=== PATIENT | male | born 1980 | race American Indian/Alaskan Native ===

== ENCOUNTER 2018-04-29 12:11 | Emergency (ER) | payer MEDICAID, MEDICARE ==
--- NOTE | 2018-04-29 12:20 | EDM.PDOC ---
ED HPI GENERAL MEDICAL PROBLEM - General Chief Complaint: Upper Extremity Injury/Pain Stated Complaint: [id number] SLIPPED AT WORK 2 DAYS AGO Time Seen by Provider: 04/29/18 12:20 Source of Information: Reports: Patient, RN, RN Notes Reviewed History Limitations: Reports: No Limitations - History of Present Illness INITIAL COMMENTS - FREE TEXT/NARRATIVE: C/O pain to left wrist. Two days ago pt states he struck his left wrist on a nail remover (claw bar) that was embedded in a wall as he was carrying a skill saw. He sustained a puncture wound, which now he believes is becoming infected. He denies fever, chills, or purulent drainage. Onset: Sudden Onset Date: 04/27/18 Duration: Constant, Getting Worse Location: Reports: Upper Extremity, Left Quality: Reports: Ache Severity: Severe Improves with: Reports: Immobilization, Rest Worsens with: Reports: Movement Associated Symptoms: Reports: No Other Symptoms Left Wrist Pain Score (Numeric/FACES): 8 - Related Data Allergies Allergy/AdvReac Type Severity Reaction Status Date / Time No Known Allergies Allergy Verified 04/29/18 12:22 Home Meds: Home Meds . [No Known Home Meds] 04/07/14 [History] Past Medical History - Past Health History Medical/Surgical History: Denies Medical/Surgical History Neurological History: Reports: None Psychiatric History: Reports: None Endocrine/Metabolic History: Reports: None Hematologic History: Reports: None Immunologic History: Reports: None Oncologic (Cancer) History: Reports: None Dermatologic History: Reports: None - Past Surgical History GI Surgical History: Reports: Cholecystectomy Endocrine Surgical History: Reports: None Neurological Surgical History: Reports: None Oncologic Surgical History: Reports: None Dermatological Surgical History: Reports: None Social & Family History - Family History Family Medical History: Noncontributory - Living Situation & Occupation Living situation: Reports: with Family Occupation: Employed Review of Systems - Review of Systems Review Of Systems: ROS reveals no pertinent complaints other than HPI. ED EXAM, GENERAL - Physical Exam Exam: See Below Exam Limited By: No Limitations General Appearance: Alert, WD/WN, No Apparent Distress Respiratory/Chest: No Respiratory Distress Cardiovascular: Normal Peripheral Pulses Extremities: Normal Capillary Refill, Arm Pain (left ulnar wrist with subacute puncture wound with 2-3cm of peripheral erythema, mild increased warmth, very slight soft tissue swelling, no drainage) Neurological: Alert, Oriented, No Motor/Sensory Deficits Psychiatric: Normal Mood ED TRAUMA EXTREMITY PROCEDURES - Splinting Left Upper Extremity Splint Site: left wrist Pre-Procedure NV Status: Normal Post-Procedure NV Status: Normal Splint Material: Metal Splint Design: Volar Applied & Form Fitted By: Nurse Provider Post-Splint Application NV Check: NV Status Normal, Good Position Complications: No Course - Vital Signs Last Recorded V/S: Last Vital Signs Temp 36.6 C 04/29/18 12:13 Pulse 94 04/29/18 12:13 Resp 18 04/29/18 12:13 BP 126/76 04/29/18 12:13 Pulse Ox 99 04/29/18 12:13 - Orders/Labs/Meds Orders: Active Orders 24 hr Category Date Time Status Splinting [RC] ASDIRECTED Care 04/29/18 12:26 Active Vaccines to be Administered [RC] PER UNIT ROUTINE Care 04/29/18 12:23 Active Meds: Medications Discontinued Medications Generic Name Dose Route Start Last Admin Trade Name Yoel PRN Reason Stop Dose Admin Bacitracin 1 dose 04/29/18 12:24 04/29/18 12:38 Bacitracin Oint 1 Gm TOP 04/29/18 12:25 1 dose ONETIME ONE Administration Diphtheria/Tetanus/Acell Pertussis 0.5 ml 04/29/18 12:23 04/29/18 12:37 Adacel IM 04/29/18 12:24 0.5 ml .ONCE ONE Administration Doxycycline Hyclate 100 mg 04/29/18 12:23 04/29/18 12:35 Vibramycin PO 04/29/18 12:24 100 mg ONETIME ONE Administration Ibuprofen 800 mg 04/29/18 12:24 04/29/18 12:36 Motrin PO 04/29/18 12:25 800 mg ONETIME ONE Administration - Radiology Interpretation Free Text/Narrative:: XR left wrist: no fractures, no FB, see Rad. report. Departure - Departure Time of Disposition: 12:53 Disposition: Home, Self-Care 01 Condition: Fair Clinical Impression: Infected puncture wound of hand Qualifiers: Encounter type: initial encounter Laterality: left Qualified Code(s): S61.432A - Puncture wound without foreign body of left hand, initial encounter - Discharge Information Instructions: Puncture Wound, Cellulitis, Adult, [id number] Forms: ED Department Discharge Additional Instructions: Rx: Doxycycline 100mg Rx: Bactroban Ointment 5% Rx: Naprosyn 500mg Wear left wrist splint as needed for comfort. Follow up in clinic in 4 to 5 days for recheck. - My Orders Last 24 Hours: My Active Orders 04/29/18 12:23 Vaccines to be Administered [RC] PER UNIT ROUTINE 04/29/18 12:26 Splinting [RC] ASDIRECTED - Assessment/Plan Last 24 Hours: My Active Orders 04/29/18 12:23 Vaccines to be Administered [RC] PER UNIT ROUTINE 04/29/18 12:26 Splinting [RC] ASDIRECTED
[2018-04-29] MEDS ORDERED: Diphtheria,Pertussis(Acell),Tetanus Vaccine 0.5 ML SDV IM ONE (12:23)
[2018-04-29] MEDS ORDERED: Doxycycline 100 MG Cap PO ONE (12:23)
[2018-04-29] MEDS ORDERED: Bacitracin Oint 1 GM U/D Packet TOP ONE (12:24)
[2018-04-29] MEDS ORDERED: Ibuprofen 800 MG Tab PO ONE (12:24)
[2018-04-29 12:30] VITALS: BP 126/76
--- NOTE | 2018-04-29 12:52 | CR ---
Clinical history: 37-year-old male puncture wound after fall on outstretched wrist. Interpretation: Soft tissue swelling volar/ulnar aspect of the wrist. No foreign bodies or inflammato ry periostitis. No left wrist fracture or dislocation. Distal left radius/ulna and the metacarpals left hand unremark able.
== END 2018-04-29 13:09 | disposition home or self-care (01) ==
LOC: DL.ED 12:11
DX: S61.432A Puncture wound without foreign body of left hand, initial encounter (principal); L08.9 Local infection of the skin and subcutaneous tissue, unspecified; W26.8XXA Contact with other sharp object(s), not elsewhere classified, initial encounter; Z23 Encounter for immunization
CPT/HCPCS: 73110; 90471; 90715; 99283; A9270

== ENCOUNTER 2019-06-27 17:23 | Emergency (ER) | payer MEDICARE ==
[2019-06-27] MEDS ORDERED: Lactated Ringers 1,000 ML IV ONE (17:34)
[2019-06-27] MEDS ORDERED: Lidocaine 1% 30 ML SDV INJECT ONE (17:38)
[2019-06-27] MEDS ORDERED: diphenhydrAMINE 50 MG/ML SDV IVPUSH ONE (17:39)
--- NOTE | 2019-06-27 18:04 | CT ---
EXAMINATION: Cervical Spine wo Cont SEX: Male AGE: 38 years CLINICAL HISTORY: 38-year-old male injured in a backward fall in which he sustained head/neck injury. No LOC. Scan technique: Volume acquisition of data emergency unenhanced CT scan of the cervical spine obtained with patient lying supine on the Siemens multi slice scanner [place], [place]. All data archived in the PACS system for storage, reformatting axial/sagittal/coronal planes and study. INTERPRETATION: 1. Straightening of usual cervical lordosis but normal bone density, height and alignment of the 7 cervical and first 2 thoracic vertebra. No sign of prevertebral soft tissue swelling, cervical fracture, spondylolisthesis or jumped locked facets. 2. Hypertrophic marginal spondylosis present at several levels. Mild reactive atlantoaxial sclerosis. 3. No cervical rib anomalies. Lung apices clear. 4. No basal skull fracture. Symmetric clear pneumatization of the mastoid sinuses. 5. No foreign bodies. CONCLUSION: No cervical fracture or dislocation.
[2019-06-27 18:05] LABS: ANION GAP 14.8; CHLORIDE,CL 101 mmol/L (101-111); SODIUM,NA 136 mmol/L (135-145)
--- NOTE | 2019-06-27 18:09 | CT ---
EXAMINATION: Head wo Cont SEX: Male AGE: 38 years CLINICAL HISTORY: 38-year-old male injured in a fall, head/neck injury. "Negative" CT scan cervical spine. Scan technique: Volume acquisition of data emergency unenhanced CT scan of the head and brain obtained with patient lying supine on the Siemens multi slice scanner [place], [place]. All data archived in the PACS system for storage, reformatting axial/sagittal/coronal planes and study (bone/brain windows). INTERPRETATION: 1. Uniformly thick bony calvarium without sign of skull fracture, underlying brain contusion or abnormal extracerebral/intracranial epidural or subdural hematoma. 2. Symmetric clear pneumatization of the paranasal and mastoid sinuses. Nasal septum is straight in the midline. 3. Symmetric kaplan-white matter pattern with underlying mirror-image normal ventricular system (some generalized atrophy). 4. No focal areas of ischemic infarct or signs of acute intracerebral/intraventricular/subarachnoid bleed. 5. Cerebellum and brainstem unremarkable. CONCLUSION: Negative exam.
--- NOTE | 2019-06-27 19:25 | EDM.PDOC ---
Scribed by Mikki Becerril 06/27/19 [id number] for Javier Tomlinson MD ED HPI GENERAL MEDICAL PROBLEM - General Chief Complaint: Trauma Stated Complaint: AMBULANCE Time Seen by Provider: 06/27/19 17:24 Source of Information: Reports: Patient, EMS, EMS Notes Reviewed, RN Notes Reviewed History Limitations: Reports: No Limitations - History of Present Illness INITIAL COMMENTS - FREE TEXT/NARRATIVE: Patient presents to ER by [facility]. Patient fell down the porch steps at his trailer house and hurt his head and right leg. He fell onto some concrete. Pt also c/o an abscess to the right wrist that he scratched the top off of when he fell. The abscess has been there several days, and his right forearm has become red, hot, and painful in the last 2 days. He is unsure if he has had MRSA in the past, but his family thinks he has. TRAUMA NOTES: 1718HRS ARRIVAL TIME: 1724HRS C-COLLAR STATUS: present on arrival SPINAL BOARD/IMMOBILIZATION STATUS: no long spine board GCS ON ARRIVAL: 15 Onset: Today, Sudden Duration: Constant Location: Reports: Head, Upper Extremity, Right, Lower Extremity, Right Quality: Reports: Ache Severity: Severe Improves with: Reports: Immobilization Worsens with: Reports: Movement Context: Reports: Other (Fall) Associated Symptoms: Reports: No Other Symptoms - Related Data Allergies Allergy/AdvReac Type Severity Reaction Status Date / Time No Known Allergies Allergy Verified 04/11/19 15:24 Home Meds: Home Meds Ibuprofen 400 mg PO Q4HR PRN 04/11/19 [History] Past Medical History - Past Health History Medical/Surgical History: Denies Medical/Surgical History Neurological History: Reports: None Psychiatric History: Reports: None Endocrine/Metabolic History: Reports: None Hematologic History: Reports: None Immunologic History: Reports: None Oncologic (Cancer) History: Reports: None Dermatologic History: Reports: None - Past Surgical History GI Surgical History: Reports: Cholecystectomy Endocrine Surgical History: Reports: None Neurological Surgical History: Reports: None Oncologic Surgical History: Reports: None Dermatological Surgical History: Reports: None Social & Family History - Family History Family Medical History: Noncontributory - Caffeine Use Caffeine Use: Reports: None - Recreational Drug Use Recreational Drug Use: Yes Drug Use in Last 12 Months: Yes Recreational Drug Type: Reports: Marijuana/Hashish, Methamphetamine Recreational Drug Use Frequency: Binges - Living Situation & Occupation Living situation: Reports: with Family Occupation: Employed Review of Systems - Review of Systems Review Of Systems: ROS reveals no pertinent complaints other than HPI. ED EXAM, GENERAL - Physical Exam Exam: See Below Free Text/Narrative:: PRIMARY TRAUMA SURVEY (1726hrs) AIRWAY: Patent nasal and oral airways. BREATHING: Spontaneous respirations with clear B/L breath sounds. CIRCULATION: Heart RRR, intact distal pulses at all four extremities, no cyanosis. DEFORMITY/DISABILITY: Head with 2.4cm left parietal scalp laceration, no active bleeding. Rt lower leg with deformity, tenderness and bruising. No other long bone deformities. Rt wrist with an abscess with acute surface abrasion and erythema w/increased warmth to the Rt forearm. No active bleeding. No neuro. deficits. Abdomen benign to exam. Pelvis stable. EXPOSURE: Skin warm, and dry. SECONDARY TRAUMA SURVEY FOLLOWS (1805hrs) Exam Limited By: No Limitations General Appearance: Alert, WD/WN, Anxious, Mild Distress (due to pain) Eye Exam: Bilateral Eye: EOMI, Normal Inspection, PERRL Ears: Normal External Exam, Normal Canal, Hearing Grossly Normal, Normal TMs, Other (no hemotympanum) Nose: Normal Inspection, Normal Mucosa, No Blood Throat/Mouth: Normal Inspection, Normal Lips, Normal Teeth, Normal Gums, Normal Oropharynx, Normal Voice, No Airway Compromise Head: Normocephalic, Other (scalp laceration) Neck: Normal Inspection, Supple, Non-Tender, Full Range of Motion, Other (C- spine cleared by CT scan. C-collar removed by me at 1805HRS) Respiratory/Chest: No Respiratory Distress, Lungs Clear, Normal Breath Sounds, No Accessory Muscle Use, Chest Non-Tender Cardiovascular: Normal Peripheral Pulses, Regular Rate, Rhythm, No Edema, No Gallop, No JVD, No Murmur, No Rub Peripheral Pulses: 3+: Posterior Tibial (L), Posterior Tibial (R), Dorsalis Pedis (L), Dorsalis Pedis (R) GI/Abdominal: Normal Bowel Sounds, Soft, Non-Tender, No Organomegaly, No Distention, No Abnormal Bruit, No Mass Back Exam: Normal Inspection Extremities: Normal Capillary Refill, Arm Pain (Rt wrist with an abrased abscess with erythema/cellulitis to the eblow.), Leg Pain (with visible deformity of the Rt lower leg, maintained in EMS splint.). No: Joint Swelling Neurological: Alert, Oriented, CN II-XII Intact, Normal Cognition, No Motor/ Sensory Deficits, Other (GCS 15 at 1 hour and at time of transfer) Psychiatric: Anxious, Tearful Skin Exam: Warm, Dry, Normal Color ED TRAUMA PROCEDURES - Laceration/Wound Repair Left Head Lac/Wound Length In cm: 2.4 Appearance: Subcutaneous, Linear Distal NVT: Neuro & Vascular Intact Anesthetic Type: Local Local Anesthesia - Lidocaine (Xylocaine): 1% Plain Local Anesthetic Volume: 5cc Skin Prep: Chlorhexidine (Hibiciens), Saline, Sterile Drape Saline Irrigation (cc's): 250 Exploration/Debridement/Repair: Wound Explored, In a Bloodless Field, Explored to Base, Minimal Debridement, Minimally Undermined Closed With: Shukri Suture Type: Interrupted # of Sutures: 5 Tetanus Status Addressed: Yes (pt states he received a Tetanus Vaccine in 2019.) Complications: No Course - Vital Signs Last Recorded V/S: See paper trauma chart for VS. - Orders/Labs/Meds Orders: Active Orders 24 hr Category Date Time Status Blood Glucose Check, Bedside [RC] ONETIME Care 06/27/19 17:33 Active Ankle Min 3V Rt [CR] Stat Exams 06/27/19 17:35 Taken Tibia Fibula Rt [CR] Stat Exams 06/27/19 17:35 Taken DRUG SCREEN URINE BIORAD [URCHEM] Stat Lab 06/27/19 17:33 Ordered UA RFX GRANT AND CULT IF INDIC [URIN] Stat Lab 06/27/19 17:33 Ordered Labs: Laboratory Tests 06/27/19 06/27/19 06/27/19 Range/Units 17:35 17:35 17:35 WBC 17.5 H (5.0-10.0) 10^3/uL RBC 4.97 (4.6-6.2) 10^6/uL Hgb 14.5 (14.0-18.0) g/dL Hct 42.7 (40.0-54.0) % MCV 85.9 (80-100) fL MCH 29.2 (27.0-34.0) pg MCHC 34.0 (33.0-35.0) g/dL Plt Count 281 (150-450) 10^3/uL Neut % (Auto) 88.2 H (42.2-75.2) % Lymph % (Auto) 6.0 L (20.5-50.1) % Canadian % (Auto) 5.3 (2-8) % Eos % (Auto) 0.3 L (1.0-3.0) % Baso % (Auto) 0.2 (0.0-1.0) % PT 10.0 (9.0-12.0) SEC INR 1.0 (0.9-1.2) APTT 25.8 (22.0-34.0) SEC Sodium 136 (135-145) mmol/L Potassium 3.8 (3.6-5.0) mmol/L Chloride 101 (101-111) mmol/L Carbon Dioxide 24.0 (21.0-31.0) mmol/L Anion Gap 14.8 BUN 15 (7-18) mg/dL Creatinine 0.9 (0.6-1.3) mg/dL Est Cr Clr Drug Dosing TNP Estimated GFR (MDRD) > 60 BUN/Creatinine Ratio 16.66 Glucose 114 H (74-105) mg/dL Calcium 8.6 (8.4-10.2) mg/dl Total Bilirubin 0.9 (0.2-1.0) mg/dL AST 18 (10-42) IU/L ALT 15 (10-60) IU/L Alkaline Phosphatase 104 (42-121) IU/L Total Protein 8.0 (6.7-8.2) g/dl Albumin 4.3 (3.2-5.5) g/dl Globulin 3.7 Albumin/Globulin Ratio 1.16 Ethyl Alcohol < 5 mg/dL Meds: Medications Discontinued Medications Generic Name Dose Route Start Last Admin Trade Name Freq PRN Reason Stop Dose Admin Diphenhydramine HCl 25 mg 06/27/19 17:39 Benadryl IVPUSH 06/27/19 17:40 ONETIME ONE Lactated Ringer's 1,000 mls @ 999 mls/hr 06/27/19 17:34 Ringers, Lactated IV 06/27/19 18:34 .BOLUS ONE Vancomycin HCl 1 gm/ Sodium 250 mls @ 167 mls/hr 06/27/19 17:38 Chloride IV 06/27/19 19:07 ONETIME ONE Lidocaine HCl 30 ml 06/27/19 17:38 Xylocaine-Mpf 1% INJECT 06/27/19 17:39 ONETIME ONE - Radiology Interpretation Free Text/Narrative:: CT cervical spine: No cervical fracture or dislocation. See rad report. CT head: Negative exam. See rad report. XR Rt Tib/Fib: distal tibia fracture, proximal fibula facture, see Rad. report. Departure - Departure Time of Disposition: 19:17 Disposition: DC/Tfer to Acute Hospital 02 Condition: Fair Clinical Impression: Cellulitis of right forearm, Methamphetamine abuse Fracture of distal end of tibia Qualifiers: Encounter type: initial encounter Fracture type: closed Fracture morphology: unspecified fracture morphology Laterality: right Qualified Code(s): S82.301A - Unspecified fracture of lower end of right tibia, initial encounter for closed fracture Fracture of proximal end of right fibula Qualifiers: Encounter type: initial encounter Fracture type: closed Fracture morphology: other fracture Qualified Code(s): S82.831A - Other fracture of upper and lower end of right fibula, initial encounter for closed fracture Scalp laceration Qualifiers: Encounter type: initial encounter Qualified Code(s): S01.01XA - Laceration without foreign body of scalp, initial encounter Fall as cause of accidental injury at home as place of occurrence Qualifiers: Encounter type: initial encounter Qualified Code(s): W19.XXXA - Unspecified fall, initial encounter; Y92.009 - Unspecified place in unspecified non- institutional (private) residence as the place of occurrence of the external cause - Discharge Information *PRESCRIPTION DRUG MONITORING PROGRAM REVIEWED*: No *COPY OF PRESCRIPTION DRUG MONITORING REPORT IN PATIENT MATTHEW: No Forms: ED Department Discharge, Interfacility Transfer EMTALA - My Orders Last 24 Hours: My Active Orders 06/27/19 17:33 Blood Glucose Check, Bedside [RC] ONETIME DRUG SCREEN URINE BIORAD [URCHEM] Stat UA RFX GRANT AND CULT IF INDIC [URIN] Stat 06/27/19 17:35 Ankle Min 3V Rt [CR] Stat Tibia Fibula Rt [CR] Stat - Assessment/Plan Last 24 Hours: My Active Orders 06/27/19 17:33 Blood Glucose Check, Bedside [RC] ONETIME DRUG SCREEN URINE BIORAD [URCHEM] Stat UA RFX GRANT AND CULT IF INDIC [URIN] Stat 06/27/19 17:35 Ankle Min 3V Rt [CR] Stat Tibia Fibula Rt [CR] Stat I have read and agree with the documentation that has been completed regarding this visit. By signing this record, I attest that the documentation was completed in my physical presence and is an accurate record of the encounter.
[2019-06-27 20:29] VITALS: BP 103/71; PULSE 101
== END 2019-06-27 20:18 ==
LOC: DL.ED 17:23
DX: S82.831A Other fracture of upper and lower end of right fibula, initial encounter for closed fracture (principal); S82.301A Unspecified fracture of lower end of right tibia, initial encounter for closed fracture; S01.01XA Laceration without foreign body of scalp, initial encounter; L03.113 Cellulitis of right upper limb; F15.10 Other stimulant abuse, uncomplicated; W10.9XXA Fall (on) (from) unspecified stairs and steps, initial encounter; Y92.029 Unspecified place in mobile home as the place of occurrence of the external cause
CPT/HCPCS: 12001; 36415; 70450; 72125; 73590; 73610; 80053; 85025; 85610; 85730; 96365; 96366; 96375; 99285; G0480; J1200; J2001; J3370; J7050; J7120

== ENCOUNTER 2019-07-05 03:42 | Emergency (ER) | payer MEDICARE ==
[2019-07-05 04:01] VITALS: BP 143/76; PULSE 102
[2019-07-05] MEDS ORDERED: Bacitracin Oint 1 GM U/D Packet TOP ONE (04:27)
--- NOTE | 2019-07-05 05:43 | EDM.PDOC ---
ED HPI GENERAL MEDICAL PROBLEM - General Chief Complaint: Lower Extremity Injury/Pain Stated Complaint: FELL, NEEDS LEG CHECKED Time Seen by Provider: 07/05/19 04:00 Source of Information: Reports: Patient History Limitations: Reports: No Limitations - History of Present Illness INITIAL COMMENTS - FREE TEXT/NARRATIVE: C/O pain to right lower leg , Fx last week with pinning. Tonight slipped on stair with crutches, Increased pain in lower leg. Treatments OLIVE PACKER: Reports: NSAIDS Right Lower Leg Pain Score (Numeric/FACES): 7 - Related Data Allergies Allergy/AdvReac Type Severity Reaction Status Date / Time No Known Allergies Allergy Verified 07/05/19 04:01 Home Meds: Home Meds Ibuprofen 1,200 mg PO Q4HR PRN 04/11/19 [History] Linezolid 600 mg PO BID 07/05/19 [History] Past Medical History - Past Health History Medical/Surgical History: Denies Medical/Surgical History Musculoskeletal History: Reports: Fracture Other Musculoskeletal History: Rt. lower leg, with a nail Neurological History: Reports: None Psychiatric History: Reports: None, Anxiety Endocrine/Metabolic History: Reports: None Hematologic History: Reports: None Immunologic History: Reports: None Oncologic (Cancer) History: Reports: None Dermatologic History: Reports: None - Past Surgical History GI Surgical History: Reports: Cholecystectomy Endocrine Surgical History: Reports: None Neurological Surgical History: Reports: None Oncologic Surgical History: Reports: None Dermatological Surgical History: Reports: None Social & Family History - Family History Family Medical History: Noncontributory - Tobacco Use Years of Tobacco use: 18 Packs/Tins Daily: 0.5 - Caffeine Use Caffeine Use: Reports: Soda - Recreational Drug Use Recreational Drug Use: Yes Drug Use in Last 12 Months: Yes Recreational Drug Type: Reports: Methamphetamine Recreational Drug Use Frequency: Rarely - Living Situation & Occupation Living situation: Reports: with Family Occupation: Employed Review of Systems - Review of Systems Review Of Systems: ROS reveals no pertinent complaints other than HPI. ED EXAM, GENERAL - Physical Exam Exam: See Below Exam Limited By: No Limitations General Appearance: Alert, No Apparent Distress Eye Exam: Bilateral Eye: EOMI Ears: Normal External Exam, Hearing Grossly Normal Nose: Normal Inspection Throat/Mouth: Normal Inspection Respiratory/Chest: No Respiratory Distress Cardiovascular: Normal Peripheral Pulses GI/Abdominal: Normal Bowel Sounds Extremities: Leg Pain (right lower leg swollen echymosis, surgical insision dressings x 3 intact.) Neurological: Alert, Oriented Psychiatric: Normal Affect Skin Exam: Warm, Dry, Wound/Incision (right wrist) Course - Vital Signs Last Recorded V/S: Last Vital Signs Temp 96.7 F 07/05/19 03:52 Pulse 102 H 07/05/19 03:52 Resp 16 07/05/19 03:52 BP 143/76 H 07/05/19 03:52 Pulse Ox 99 07/05/19 03:52 - Orders/Labs/Meds Orders: Active Orders 24 hr Category Date Time Status Tibia Fibula Rt [CR] Urgent Exams 07/05/19 04:33 Taken Meds: Medications Discontinued Medications Generic Name Dose Route Start Last Admin Trade Name Freq PRN Reason Stop Dose Admin Bacitracin 1 dose 07/05/19 04:27 07/05/19 04:38 Bacitracin Oint 1 Gm TOP 07/05/19 04:28 1 dose ONETIME ONE Administration - Radiology Interpretation Free Text/Narrative:: [facility] Final Radiology Report Call: [phone] assistance Online chat: [email or web address] Name: MARY ROSAS Age: 39Years M Date: 07/05/2019 SSN: -- : 1980 Study: XR TIBIA & FIBULA RIGHT Requesting Physician: CAROLANN ROSE Images: 3 Addl Studies: Provided Clinical History: Contrast: Contrast Medium: Contrast Amount: Contrast Method: CONFIDENTIALITY STATEMENT This report is intended only for use by the referring physician, and only in accordance with law. If you received this in error, call [phone]. Page 1 of 1 PROCEDURE INFORMATION: Exam: XR Right Tibia and Fibula Exam date and time: 07/05/2019 4:39 AM Clinical history: 39 years old, male; Injury or trauma; Injury history: Recent FX with orif, slipped on stairs; Initial encounter; Blunt trauma; Lower leg; Right TECHNIQUE: Imaging protocol: XR Right tibia and fibula. Views: 2 views. COMPARISON: CR Tibia Fibula Rt 06/27/2019 6:05 PM CR - Ankle Min 3V Rt 06/27/2019 6:07:08 PM FINDINGS: Bones/joints: Status post ORIF of the tibia with placement of a long intramedullary kelvin and intersecting screws proximally and distally for fixation of a transverse fracture of the distal diaphysis. Hardware is intact and appropriately positioned. Again seen is a subacute nondisplaced oblique fracture of the proximal fibula. No new acute fractures. No dislocation. Soft tissues: Mild generalized soft tissue swelling of the knee and lower leg. IMPRESSION: Status post ORIF of the tibia. Again seen is a subacute nondisplaced oblique fracture of the proximal fibula. No new acute fractures. Thank you for allowing us to participate in the care of your patient. Dictated and Authenticated by: Palmer Roy MD 07/05/2019 6:14 AM Central Time ([place] & [place] - Re-Assessments/Exams Free Text/Narrative Re-Assessment/Exam: 07/05/19 06:23 Patient left with out waiting for results of xray. Departure - Departure Time of Disposition: 05:37 Disposition: Eloped 07 Condition: Good Clinical Impression: Fracture, tibia and fibula Qualifiers: Encounter type: subsequent encounter Fracture type: closed Laterality: right Fracture healing: with routine healing Qualified Code(s): S82.201D - Unspecified fracture of shaft of right tibia, subsequent encounter for closed fracture with routine healing - Discharge Information *PRESCRIPTION DRUG MONITORING PROGRAM REVIEWED*: No *COPY OF PRESCRIPTION DRUG MONITORING REPORT IN PATIENT MATTHEW: No Instructions: Tibial and Fibular Fractures Referrals: PCP,Unobtain [Primary Care Provider] - Forms: ED Department Discharge Additional Instructions: Non weight bearing elevate brace and dominic wrap follow up with ortho as scheduled alternate tylenol and ibuprofen - My Orders Last 24 Hours: My Active Orders 07/05/19 04:33 Tibia Fibula Rt [CR] Urgent - Assessment/Plan Last 24 Hours: My Active Orders 07/05/19 04:33 Tibia Fibula Rt [CR] Urgent
== END 2019-07-05 06:15 | disposition left against medical advice (07) ==
LOC: DL.ED 03:42
DX: S82.201A Unspecified fracture of shaft of right tibia, initial encounter for closed fracture (principal); S82.434A Nondisplaced oblique fracture of shaft of right fibula, initial encounter for closed fracture; F17.210 Nicotine dependence, cigarettes, uncomplicated; W10.9XXA Fall (on) (from) unspecified stairs and steps, initial encounter
CPT/HCPCS: 73590-RT; 99282; 99283-25

== ENCOUNTER 2021-06-13 20:12 | Emergency (ER) | payer MEDICAID, MEDICARE | END 2021-06-13 20:27 | disposition left against medical advice (07) | LOC: DL.ED 20:12 | DX: R50.9 Fever, unspecified (principal); Z53.21 Procedure and treatment not carried out due to patient leaving prior to being seen by health care provider ==